=== PATIENT | female | born 1965 | race Caucasian/White ===

== ENCOUNTER 2021-03-21 14:21 | Inpatient (IN) ==
[2021-03-21] MEDS ORDERED: *HR* Dextrose 50 % in Water (Syg) 50 ML SYRINGE IVP PRN (15:32)
[2021-03-21] MEDS ORDERED: D5% in Water 1,000 ML IVC PRN (15:32)
[2021-03-21] MEDS ORDERED: Dextrose Gel 15 GM/37.5 ML TUBE PO PRN ×2 (15:32)
[2021-03-21] MEDS: Insulin LISPRO 300 UNITS/3 ML VIAL SUBQ SCH ×2 (16:53→21:15)
[2021-03-21] MEDS ORDERED: SALMETEROL IH SCH (21:00)
[2021-03-21] MEDS ORDERED: FLUTICASONE PROPION IH SCH (21:00)
[2021-03-21] MEDS ORDERED: [UNRECOGNIZED DRUG - OTHER] IH SCH (21:00)
[2021-03-21] MEDS: Gabapentin 300 MG CAPSULE PO SCH (21:14)
[2021-03-21] MEDS: Insulin DETEMIR 100 UNIT/ML X5UNITS SUBQ SCH (21:15)
[2021-03-22 06:19] LABS: Basophils % 0.4 %; Eosinophils % 0.4 %; Hemoglobin 10.1 g/dL (11.5-15.4); Immature Granulocytes % 0.5 % (0-4); Lymphocytes # 1.9 K/mcL (0.6-4.6); Lymphocytes % 20.6 %; Mean Corpuscular HGB Conc 31.6 g/dL (31.6-35.5); Mean Corpuscular Volume 88.6 fL (83.0-100.0); Monocytes # 1.3 K/mcL (0.0-1.3); Monocytes % 13.5 %; Nucleated Red Blood Cells 0.3 /100 WBC (0); Platelet Count 312 K/mcL (140-400); Red Blood Count 3.61 M/mcL (3.82-4.97); Red Cell Distribution Width 16.3 % (11.5-14.5); Segmented Neutrophils % 64.6 %; White Blood Count 9.3 K/mcL (4.3-11.1)
[2021-03-22 06:52] LABS: Calcium 8.9 mg/dL (8.6-10.3); Potassium 4.9 mEq/L (3.5-5.1)
[2021-03-22] MEDS: *HR* Enoxaparin 40 MG/0.4 ML SYRINGE SQ SCH (07:24)
[2021-03-22] MEDS: Ascorbic Acid 500 MG TABLET PO SCH (08:31)
[2021-03-22] MEDS: Vitamin E 200 UNIT (90MG) CAPSULE PO SCH (08:31)
[2021-03-22] MEDS: Cholecalciferol (D-3) 1,000 UNIT (25MCG) TABLET PO SCH (08:31)
[2021-03-22] MEDS: Vitamin B Complex/Vit C/Vit E 1 EACH TABLET PO SCH (08:32)
[2021-03-22] MEDS: GlipiZIDE 5 MG TABLET PO SCH (08:32)
[2021-03-22] MEDS: Magnesium Oxide 400 MG TABLET PO SCH (08:32)
[2021-03-22] MEDS: Insulin LISPRO 300 UNITS/3 ML VIAL SUBQ SCH ×4 (08:34→21:11)
[2021-03-22] MEDS ORDERED: NON-FORMULARY MEDICATION 1 EACH EACH (Turmeric Root Extract [Turmeric] 500 MG Capsule) PO SCH (09:00)
[2021-03-22] MEDS ORDERED: NON-FORMULARY MEDICATION 1 EACH EACH (Omega-3s/Dha/Epa/Fish Oil [Fish Oil 1,200 Mg Softgel PO SCH (09:00)
[2021-03-22] MEDS ORDERED: GARLIC 300 MG PO SCH (09:00)
[2021-03-22] MEDS: 0.9 % Sodium Chloride 1,000 ML IVC SCH ×2 (10:31→21:50)
[2021-03-22] MEDS: Insulin DETEMIR 100 UNIT/ML X5UNITS SUBQ SCH ×2 (10:41→21:10)
[2021-03-22] MEDS: Acetaminophen 325 MG TABLET PO PRN (16:11)
[2021-03-22] MEDS: Melatonin 3 MG TABLET PO SCH (21:05)
[2021-03-22] MEDS: Gabapentin 300 MG CAPSULE PO SCH (21:05)
[2021-03-22] MEDS: Nystatin POWDER 30 GM BOTTLE TP SCH (21:22)
[2021-03-23] MEDS: *HR* HYDROcodone/Acet 5/325 mg TABLET PO PRN ×3 (00:56→21:28)
[2021-03-23] MEDS: 0.9 % Sodium Chloride 1,000 ML IVC SCH ×3 (04:03→16:32)
[2021-03-23] MEDS: *HR* Enoxaparin 40 MG/0.4 ML SYRINGE SQ SCH (05:44)
[2021-03-23] MEDS: Vitamin B Complex/Vit C/Vit E 1 EACH TABLET PO SCH (07:31)
[2021-03-23] MEDS: GlipiZIDE 5 MG TABLET PO SCH (07:31)
[2021-03-23] MEDS: Vitamin E 200 UNIT (90MG) CAPSULE PO SCH (07:31)
[2021-03-23] MEDS: Ascorbic Acid 500 MG TABLET PO SCH (07:31)
[2021-03-23] MEDS: Magnesium Oxide 400 MG TABLET PO SCH (07:32)
[2021-03-23] MEDS: Cholecalciferol (D-3) 1,000 UNIT (25MCG) TABLET PO SCH (07:32)
[2021-03-23] MEDS: Nystatin POWDER 30 GM BOTTLE TP SCH ×2 (07:32→21:14)
[2021-03-23] MEDS: Insulin DETEMIR 100 UNIT/ML X5UNITS SUBQ SCH (07:32)
[2021-03-23] MEDS: Insulin LISPRO 300 UNITS/3 ML VIAL SUBQ SCH ×4 (07:32→21:04)
[2021-03-23] MEDS ORDERED: Insulin DETEMIR 100 UNIT/ML per UNIT SUBQ ONE (21:00)
[2021-03-23] MEDS: Melatonin 3 MG TABLET PO SCH (21:15)
[2021-03-23] MEDS: Gabapentin 300 MG CAPSULE PO SCH (21:15)
[2021-03-24] MEDS: *HR* HYDROcodone/Acet 5/325 mg TABLET PO PRN ×2 (03:38→16:39)
[2021-03-24] MEDS: 0.9 % Sodium Chloride 1,000 ML IVC SCH ×2 (03:44→16:38)
[2021-03-24 05:01] LABS: Hematocrit 30.8 % (35.3-44.9); Hemoglobin 9.7 g/dL (11.5-15.4); Mean Corpuscular HGB Conc 31.5 g/dL (31.6-35.5); Mean Corpuscular Hemoglobin 28.3 pg (28.0-33.3); Mean Corpuscular Volume 89.8 fL (83.0-100.0); Mean Platelet Volume 12.3 fL (9.4-12.4); Platelet Count 292 K/mcL (140-400); Red Blood Count 3.43 M/mcL (3.82-4.97); Red Cell Distribution Width 16.7 % (11.5-14.5); White Blood Count 8.6 K/mcL (4.3-11.1)
[2021-03-24 05:18] LABS: Alanine Aminotransferase 29 Units/L (7-52); Albumin 2.8 g/dL (3.5-5.7); Albumin/Globulin Ratio 0.5 (1.1-2.2); Alkaline Phosphatase 52 Units/L (34-104); Aspartate Amino Transferase 29 Units/L (13-39); BUN/Creatinine Ratio 53 (6-26); Bilirubin,Total 0.4 mg/dL (0.3-1.0); Blood Urea Nitrogen 54 mg/dL (6-20); Calcium 8.8 mg/dL (8.6-10.3); Carbon Dioxide 32 mEq/L (23-29); Chloride 97 mEq/L (98-107); Globulin 5.1 g/dL (2.4-3.5); Glucose 214 mg/dL (70-105); Magnesium 2.2 mg/dL (1.6-2.6); Osmolality,Calculated 291 (280-300); Potassium 4.6 mEq/L (3.5-5.1); Sodium 130 mEq/L (136-145); Total Protein 7.9 g/dL (6.4-8.9); eGFR For African Americans > 60 (> 60); eGFR For Non-African Americans 56 (> 60)
[2021-03-24] MEDS: *HR* Enoxaparin 40 MG/0.4 ML SYRINGE SQ SCH (05:38)
[2021-03-24] MEDS: Insulin DETEMIR 100 UNIT/ML X5UNITS SUBQ SCH ×2 (08:09→21:26)
[2021-03-24] MEDS: Acetaminophen 325 MG TABLET PO PRN ×2 (08:10→16:39)
[2021-03-24] MEDS: Vitamin E 200 UNIT (90MG) CAPSULE PO SCH (08:10)
[2021-03-24] MEDS: Cholecalciferol (D-3) 1,000 UNIT (25MCG) TABLET PO SCH (08:11)
[2021-03-24] MEDS: Ascorbic Acid 500 MG TABLET PO SCH (08:11)
[2021-03-24] MEDS: GlipiZIDE 5 MG TABLET PO SCH (08:11)
[2021-03-24] MEDS: Vitamin B Complex/Vit C/Vit E 1 EACH TABLET PO SCH (08:12)
[2021-03-24] MEDS: Magnesium Oxide 400 MG TABLET PO SCH (08:12)
[2021-03-24] MEDS: Insulin LISPRO 300 UNITS/3 ML VIAL SUBQ SCH ×4 (08:13→21:25)
[2021-03-24] MEDS: Nystatin POWDER 30 GM BOTTLE TP SCH ×2 (11:34→21:40)
[2021-03-24] MEDS: Sennosides/Docusate Sodium TABLET PO SCH ×2 (16:38→21:26)
[2021-03-24] MEDS: Melatonin 3 MG TABLET PO SCH (21:26)
[2021-03-24] MEDS: Gabapentin 300 MG CAPSULE PO SCH (21:26)
[2021-03-25] MEDS: *HR* HYDROcodone/Acet 5/325 mg TABLET PO PRN ×2 (00:19→06:07)
[2021-03-25] MEDS: *HR* Enoxaparin 40 MG/0.4 ML SYRINGE SQ SCH (05:24)
[2021-03-25] MEDS: 0.9 % Sodium Chloride 1,000 ML IVC SCH ×2 (05:39→20:30)
[2021-03-25] MEDS: Insulin LISPRO 300 UNITS/3 ML VIAL SUBQ SCH ×4 (09:58→22:22)
[2021-03-25] MEDS: Vitamin E 200 UNIT (90MG) CAPSULE PO SCH (09:59)
[2021-03-25] MEDS: Chlorhexidine Rinse 15 ML MOUTHWASH MM SCH ×2 (09:59→22:21)
[2021-03-25] MEDS: Nystatin SUSP 5 ML UD.LIQ PO SCH ×4 (09:59→22:21)
[2021-03-25] MEDS: Sennosides/Docusate Sodium TABLET PO SCH ×2 (09:59→22:21)
[2021-03-25] MEDS: Cholecalciferol (D-3) 1,000 UNIT (25MCG) TABLET PO SCH (09:59)
[2021-03-25] MEDS: Magic Mouthwash 10 ML UD Cup PO SCH ×3 (09:59→17:52)
[2021-03-25] MEDS: GlipiZIDE 5 MG TABLET PO SCH (09:59)
[2021-03-25] MEDS: Magnesium Oxide 400 MG TABLET PO SCH (09:59)
[2021-03-25] MEDS: Vitamin B Complex/Vit C/Vit E 1 EACH TABLET PO SCH (10:00)
[2021-03-25] MEDS: Ascorbic Acid 500 MG TABLET PO SCH (10:00)
[2021-03-25] MEDS: Insulin DETEMIR 100 UNIT/ML X5UNITS SUBQ SCH ×2 (10:05→22:22)
[2021-03-25] MEDS: Nystatin POWDER 30 GM BOTTLE TP SCH ×2 (11:56→22:21)
[2021-03-25] MEDS: Melatonin 3 MG TABLET PO SCH (22:21)
[2021-03-25] MEDS: Gabapentin 300 MG CAPSULE PO SCH (22:21)
[2021-03-26] MEDS: *HR* HYDROcodone/Acet 5/325 mg TABLET PO PRN ×3 (00:11→13:58)
[2021-03-26] MEDS: *HR* Enoxaparin 40 MG/0.4 ML SYRINGE SQ SCH (05:36)
[2021-03-26] MEDS: Insulin LISPRO 300 UNITS/3 ML VIAL SUBQ SCH ×5 (07:17→21:38)
[2021-03-26] MEDS: Chlorhexidine Rinse 15 ML MOUTHWASH MM SCH ×2 (07:18→21:50)
[2021-03-26] MEDS: Magic Mouthwash 10 ML UD Cup PO SCH ×3 (07:18→13:58)
[2021-03-26] MEDS: Vitamin B Complex/Vit C/Vit E 1 EACH TABLET PO SCH (07:18)
[2021-03-26] MEDS: Vitamin E 200 UNIT (90MG) CAPSULE PO SCH (07:18)
[2021-03-26] MEDS: Nystatin POWDER 30 GM BOTTLE TP SCH ×2 (07:18→21:51)
[2021-03-26] MEDS: Nystatin SUSP 5 ML UD.LIQ PO SCH ×4 (07:18→21:50)
[2021-03-26] MEDS: Ascorbic Acid 500 MG TABLET PO SCH (07:18)
[2021-03-26] MEDS: GlipiZIDE 5 MG TABLET PO SCH (07:19)
[2021-03-26] MEDS: Cholecalciferol (D-3) 1,000 UNIT (25MCG) TABLET PO SCH (07:19)
[2021-03-26] MEDS: Sennosides/Docusate Sodium TABLET PO SCH ×2 (07:19→21:50)
[2021-03-26] MEDS: Acetaminophen 325 MG TABLET PO PRN (07:19)
[2021-03-26] MEDS: Magnesium Oxide 400 MG TABLET PO SCH (07:19)
[2021-03-26] MEDS: Insulin DETEMIR 100 UNIT/ML X5UNITS SUBQ SCH ×2 (07:49→21:54)
[2021-03-26] MEDS: 0.9 % Sodium Chloride 1,000 ML IVC SCH (09:41)
[2021-03-26] MEDS: tiZANidine 4 MG TABLET PO PRN ×2 (14:35→21:59)
[2021-03-26] MEDS: Gabapentin 300 MG CAPSULE PO SCH (21:50)
[2021-03-26] MEDS: Melatonin 3 MG TABLET PO SCH (21:50)
[2021-03-27] MEDS: 0.9 % Sodium Chloride 1,000 ML IVC SCH ×2 (00:44→12:24)
[2021-03-27] MEDS: *HR* HYDROcodone/Acet 5/325 mg TABLET PO PRN ×3 (02:42→21:46)
[2021-03-27] MEDS: *HR* Enoxaparin 40 MG/0.4 ML SYRINGE SQ SCH (05:29)
[2021-03-27] MEDS: tiZANidine 4 MG TABLET PO PRN ×2 (05:30→17:58)
[2021-03-27] MEDS: Cholecalciferol (D-3) 1,000 UNIT (25MCG) TABLET PO SCH (07:11)
[2021-03-27] MEDS: Sennosides/Docusate Sodium TABLET PO SCH ×2 (07:11→20:38)
[2021-03-27] MEDS: Vitamin E 200 UNIT (90MG) CAPSULE PO SCH (07:12)
[2021-03-27] MEDS: Vitamin B Complex/Vit C/Vit E 1 EACH TABLET PO SCH (07:12)
[2021-03-27] MEDS: Ascorbic Acid 500 MG TABLET PO SCH (07:12)
[2021-03-27] MEDS: Magnesium Oxide 400 MG TABLET PO SCH (07:12)
[2021-03-27] MEDS: GlipiZIDE 5 MG TABLET PO SCH (07:13)
[2021-03-27] MEDS: Chlorhexidine Rinse 15 ML MOUTHWASH MM SCH ×2 (07:13→20:38)
[2021-03-27] MEDS: Nystatin SUSP 5 ML UD.LIQ PO SCH ×4 (07:13→20:38)
[2021-03-27] MEDS: Magic Mouthwash 10 ML UD Cup PO SCH ×3 (07:13→17:58)
[2021-03-27] MEDS: Nystatin POWDER 30 GM BOTTLE TP SCH ×2 (07:13→22:00)
[2021-03-27] MEDS: Insulin LISPRO 300 UNITS/3 ML VIAL SUBQ SCH ×4 (07:47→20:47)
[2021-03-27] MEDS: Insulin DETEMIR 100 UNIT/ML X5UNITS SUBQ SCH ×2 (07:48→21:46)
[2021-03-27] MEDS: *HR* Enoxaparin 150 MG/ML SYRINGE SQ SCH (20:37)
[2021-03-27] MEDS: Gabapentin 300 MG CAPSULE PO SCH (20:38)
[2021-03-27] MEDS: Melatonin 3 MG TABLET PO SCH (20:38)
[2021-03-28] MEDS: 0.9 % Sodium Chloride 1,000 ML IVC SCH (04:00)
[2021-03-28] MEDS: *HR* Enoxaparin 150 MG/ML SYRINGE SQ SCH ×2 (05:06→17:02)
[2021-03-28] MEDS: tiZANidine 4 MG TABLET PO PRN (05:07)
[2021-03-28 06:05] LABS: Hematocrit 22.9 % (35.3-44.9); Hemoglobin 7.1 g/dL (11.5-15.4); Mean Corpuscular Hemoglobin 28.4 pg (28.0-33.3); Mean Corpuscular Volume 91.6 fL (83.0-100.0); Mean Platelet Volume 10.5 fL (9.4-12.4); Platelet Count 310 K/mcL (140-400); White Blood Count 8.1 K/mcL (4.3-11.1)
[2021-03-28 06:37] LABS: Alanine Aminotransferase 35 Units/L (7-52); Albumin 2.5 g/dL (3.5-5.7); Albumin/Globulin Ratio 0.7 (1.1-2.2); Alkaline Phosphatase 44 Units/L (34-104); Aspartate Amino Transferase 30 Units/L (13-39); BUN/Creatinine Ratio 39 (6-26); Bilirubin,Total 0.3 mg/dL (0.3-1.0); Blood Urea Nitrogen 29 mg/dL (6-20); Calcium 8.5 mg/dL (8.6-10.3); Carbon Dioxide 30 mEq/L (23-29); Chloride 99 mEq/L (98-107); Globulin 3.8 g/dL (2.4-3.5); Glucose 211 mg/dL (70-105); Osmolality,Calculated 286 (280-300); Potassium 4.2 mEq/L (3.5-5.1); Sodium 132 mEq/L (136-145); Total Protein 6.3 g/dL (6.4-8.9); eGFR For African Americans > 60 (> 60); eGFR For Non-African Americans > 60 (> 60)
[2021-03-28] MEDS ORDERED: 0.9 % Sodium Chloride 1,000 ML IVC SCH (09:36)
[2021-03-28] MEDS: Cholecalciferol (D-3) 1,000 UNIT (25MCG) TABLET PO SCH (10:09)
[2021-03-28] MEDS: Nystatin SUSP 5 ML UD.LIQ PO SCH ×3 (10:09→17:02)
[2021-03-28] MEDS: GlipiZIDE 5 MG TABLET PO SCH (10:09)
[2021-03-28] MEDS: Chlorhexidine Rinse 15 ML MOUTHWASH MM SCH (10:09)
[2021-03-28] MEDS: Ascorbic Acid 500 MG TABLET PO SCH (10:09)
[2021-03-28] MEDS: Magnesium Oxide 400 MG TABLET PO SCH (10:10)
[2021-03-28] MEDS: Vitamin B Complex/Vit C/Vit E 1 EACH TABLET PO SCH (10:10)
[2021-03-28] MEDS: Vitamin E 200 UNIT (90MG) CAPSULE PO SCH (10:10)
[2021-03-28] MEDS: Insulin DETEMIR 100 UNIT/ML X5UNITS SUBQ SCH (10:10)
[2021-03-28] MEDS: Sennosides/Docusate Sodium TABLET PO SCH (10:10)
[2021-03-28] MEDS: Magic Mouthwash 10 ML UD Cup PO SCH ×3 (10:10→17:01)
[2021-03-28] MEDS: *HR* HYDROcodone/Acet 5/325 mg TABLET PO PRN ×2 (10:11→17:01)
[2021-03-28] MEDS: Nystatin POWDER 30 GM BOTTLE TP SCH (10:13)
[2021-03-28] MEDS: Insulin LISPRO 300 UNITS/3 ML VIAL SUBQ SCH ×3 (10:14→17:08)
[2021-03-28] MEDS ORDERED: levoFLOXacin 500 MG TABLET PO SCH (10:45)
[2021-03-28 11:23] LABS: Prealbumin 14.4 mg/dL (17.0-34.0)
[2021-03-28] MEDS ORDERED: *HR* LORazepam 0.5 MG TABLET PO PRN (15:01)
[2021-03-28 15:27] LABS: VBG HCO3 25 mEq/L (21-27); VBG PCO2 47 mmHg (41-51); VBG PH 7.34 pH Units (7.32-7.42); VBG PO2 62 mmHg (25-50)
[2021-03-28] MEDS: Acetaminophen 325 MG TABLET PO PRN (16:40)
[2021-03-28] MEDS ORDERED: 0.9 % Sodium Chloride 500 ML ONE (19:29)
[2021-03-28] MEDS ORDERED: Naloxone 0.4 MG/ML INJ ONE (19:37)
[2021-03-28] MEDS ORDERED: 0.9 % Sodium Chloride 1,000 ML IV ONE (19:47)
[2021-03-28] MEDS ORDERED: Naloxone 0.4 MG/ML INJ IVP PRN (19:48)
[2021-03-28] MEDS ORDERED: 0.9 % Sodium Chloride 1,000 ML ONE (20:13)
[2021-03-28] MEDS ORDERED: 0.9 % Sodium Chloride 250 ML ONE (20:43)
[2021-03-28 20:52] LABS: Hematocrit 18.9 % (35.3-44.9); Mean Corpuscular HGB Conc 30.7 g/dL (31.6-35.5); Mean Corpuscular Hemoglobin 28.7 pg (28.0-33.3); Mean Corpuscular Volume 93.6 fL (83.0-100.0); Mean Platelet Volume 11.4 fL (9.4-12.4); Platelet Count 336 K/mcL (140-400); Red Blood Count 2.02 M/mcL (3.82-4.97); Red Cell Distribution Width 18.8 % (11.5-14.5); White Blood Count 15.1 K/mcL (4.3-11.1)
[2021-03-28 20:54] LABS: Hemoglobin 5.8 g/dL (11.5-15.4)
[2021-03-28 21:06] VITALS: TEMP 99
[2021-03-28 21:10] VITALS: BP 86/50; PULSE 82; RESP 18; O2SAT 98
[2021-03-28 21:10] LABS: Calcium 7.8 mg/dL (8.6-10.3); Potassium 4.8 mEq/L (3.5-5.1)
[2021-03-28 21:11] LABS: VBG HCO3 25 mEq/L (21-27); VBG PCO2 53 mmHg (41-51); VBG PH 7.29 pH Units (7.32-7.42); VBG PO2 34 mmHg (25-50)
[2021-03-29] MEDS ORDERED: Piperacillin/Tazobactam 3.375 GM in 0.9 % Sodium Chloride Mini Bag 100 ML IVPB SCH
== END 2021-03-28 21:05 | disposition short-term general hospital (02) | DRG 871 ==
LOC: INPGRE 14:25
PROVIDERS: ADMIT Family Medicine; ATTEND Family Medicine